=== PATIENT | female | born 1985 | race Caucasian/White ===

== ENCOUNTER 2025-07-24 05:40 | Day surgery (SDC) | payer BC, SELFPAY ==
--- NOTE | 2025-07-10 15:44 | ESHP_ITS ---
RE: D[facility]ALL : 1985 DATE OF ADMISSION: 07/24/2025 HISTORY OF PRESENT ILLNESS: This is a 40-year-old 2, para 0-0-2-0 with abnormal uterine bleeding and endocervical polyp with submucous myoma, who presents for removal of the above lesions and endometrial ablation. ALLERGIES: NO KNOWN DRUG ALLERGIES. MEDICATIONS: None. PAST MEDICAL HISTORY: Denies. SOCIAL HISTORY: She denies any alcohol, drug use or smoking. FAMILY HISTORY: Hypertension. PAST SURGICAL HISTORY: Appendectomy. REVIEW OF SYSTEMS: She denies any chest pain, palpitations, cough, fever, shortness of breath or lower extremity pain. PHYSICAL EXAMINATION: VITAL SIGNS: Blood pressure is 135/80, heart rate 88, respirations 18, temperature 98.6. HEENT: Oropharynx and sclerae are clear. LUNGS: Clear to auscultation bilaterally. HEART: Regular rate and rhythm. ABDOMEN: Nontender. EXTREMITIES: Nontender. SKIN: No gross rashes or lesions. NEUROLOGIC: No focal deficits. ASSESSMENT: Abnormal uterine bleeding, endocervical polyp, submucous myoma. PLAN: Hysteroscopy, MyoSure removal of endometrial polyp and endocervical polyp and submucous myoma, fractional dilatation and curettage, and NovaSure endometrial ablation. Informed consent was obtained. The patient was made aware of the risks, complications, alternatives, and benefits of the proposed procedure and she agrees. She is aware of the risk of injury to bowel and bladder, adjacent organs, pulmonary embolism, deep vein thrombosis, pelvic infection, reoperation to repair injury to internal organs, anesthesia complications, the possibility that a laparotomy needs to be performed to repair organs or controlled bleeding, and the possibility that the procedure is not able to be completed due to severe adhesions or technical difficulties. DT: 12:40:50 TT: 14:57:00 Ref: [id number] - TID: [id number] [facility]
[2025-07-23 07:01] VITALS: BMI 25.9
[2025-07-23 14:16] LABS: Basophils # (Auto) 0.1 Thou/mm3 (0.0-0.2); Basophils % (Auto) 1 % (0-2.5); Eosinophils # (Auto) 0.3 Thou/mm3 (0.0-0.5); Eosinophils % (Auto) 3 % (0-10); Hematocrit 35.6 % (36.0-46.0); Hemoglobin 11.8 g/dL (12.0-16.0); Immature Granulocytes Auto 0.05 Thou/mm3 (0.00-0.00); Lymphocytes # (Auto) 2.9 Thou/mm3 (1.0-4.8); Lymphocytes % (Auto) 29 % (10-50); Mean Corpuscular HGB Conc 33.1 g/dl (31.0-37.0); Mean Corpuscular Hemoglobin 29.9 pg (25.0-35.0); Mean Corpuscular Volume 90 fL (80-100); Monocytes # (Auto) 1.0 Thou/mm3 (0.0-0.8); Monocytes % (Auto) 10 % (0-12); Neutrophils # (Auto) 5.6 Thou/mm3 (1.8-7.7); Neutrophils % (Auto) 57 % (37-80); Nucleated Red Blood Cell # 0.00 Thou/mm3 (0.00-0.00); Nucleated Red Blood Cell % 0 /100 WBC (0); Platelet Count 285 Thou/mm3 (140-440); RDW Standard Deviation 41.9 fL (36.4-46.3); Red Blood Count 3.94 Miln/mm3 (4.00-5.20); White Blood Count 9.8 Thou/mm3 (3.6-11.0)
[2025-07-23 14:25] LABS: INR 1.0 (0.9-1.3); Partial Thromboplastin Time 26.8 Seconds (22.0-36.0); Prothrombin Time 11.0 Seconds (9.0-12.2)
[2025-07-23 14:29] LABS: Alanine Aminotransferase 15 U/L (10-49); Albumin, Serum 4.6 gm/dL (3.5-5.0); Albumin/Globulin Ratio 2.1 (1.2-2.2); Alkaline Phosphatase 68 U/L (46-116); Anion Gap 9 (7-16); Aspartate Amino Transferase 19 U/L (0-34); BUN/Creatinine Ratio 17 Ratio (12-20); Beta HCG,Quantitative < 1 mIU/mL (<5.0); Bilirubin,Total 1.0 mg/dL (0.3-1.2); Blood Urea Nitrogen 12 mg/dL (9-23); Calcium 10.0 mg/dL (8.3-10.6); Calcium (Corrected) 10.0 mg/dL (8.5-10.1); Carbon Dioxide 26.3 mMol/L (20.0-31.0); Chloride 105 mMol/L (98-107); Creatinine (Component) 0.7 mg/dL (0.6-1.3); Estimated Creatinine Clearance 101.6 mL/min (>60); Globulin 2.2 gm/dL (2.3-3.5); Glucose 87 mg/dL (74-106); Osmolality,Calculated 278 (275-295); Potassium 4.0 mMol/L (3.4-5.1); Sodium 140 mMol/L (136-145); Total Protein 6.8 gm/dL (5.7-8.2); eGFR > 60 See Note
[2025-07-24] VITALS (7 sets, daily range): BP systolic 120–138; BP diastolic 70–93; PULSE 69–108; RESP 12–19; TEMP 36.5–36.9; O2SAT 100; BMI 25.8
[2025-07-24] MEDS: RINGERS LACTATED 1000 ML 1,000 ML 30 ML IV (06:55)
--- NOTE | 2025-07-24 07:27 | SUR.PREOP ---
Patient expressed gratitude for prayer before their procedure.
--- NOTE | 2025-07-24 08:05 | SUR.PHASEI ---
0805 Patient arrived to recovery resting comfortably in [facility], on oxygen 3L via oxy mask, breathing unlabored, vital signs stable, denies pain, dressing intact to vaginal area; peripad, no bleeding noted, report received from Eva LOWE and Porter MARISCAL
[2025-07-24] MEDS: fentaNYL CIT INJ 50 mCg/ML AMP 2ML IVP (08:23)
--- NOTE | 2025-07-24 09:01 | SUR.PHASEII ---
0901 Patient meets discharge criteria from recovery, awake and alert, breathing unlabored, vital signs stable, denies pain, dressing intact; no bleeding noted, ate a jello and drinking apple juice, denies nausea, patient assisted with dressing into her clothing by her mother, discharge instructions given to patient and patients mother, mother signed discharge instructions, patient given all her belongings prior to discharge, transported via wheelchair and left in a private vehicle.
--- NOTE | 2025-07-26 07:53 | ESOP_ITS ---
RE: [facility] : 1985 DATE OF OPERATION: 07/24/2025 PREOPERATIVE DIAGNOSES: Abnormal uterine bleeding, submucous myoma. POSTOPERATIVE DIAGNOSES: Abnormal uterine bleeding, endometrial polyp. PROCEDURES: Hysteroscopy, MyoSure removal of endometrial polyp, fractional dilatation and curettage, NovaSure endometrial ablation. SURGEON: Scotty Cruz D.O. ANIMATOR: None. ANESTHESIA: General. ANESTHESIOLOGIST: Porter Nunez CRNA. ESTIMATED BLOOD LOSS: 5 mL. COMPLICATIONS: None. COUNTS: Correct. PATHOLOGY: 1. Endometrial polyp. 2. Endocervical curettings. 3. Endometrial curettings. FINDINGS: Uterus sounds to 8.0 cm. Cervical length is 4.0 cm. Uterine cavity length is 4.0 cm. Uterine cavity width is 3.5 cm. Power setting is 77 [place]. Duration of ablation was 2 minutes. A 1.0 x 0.5 endometrial polyp on the anterior mid aspect of the uterine cavity. DESCRIPTION OF PROCEDURE: After appropriate informed consent was obtained and the patient was made aware of the risks, complications, alternatives and benefits of the proposed procedure, she was taken to the operating room where she underwent induction of general anesthesia. She was placed in the dorsal lithotomy position. She was prepped and draped in the usual sterile fashion. A speculum was placed in the vagina. A single-tooth tenaculum was used to grasp the anterior lip of the cervix. The cervix was dilated and the uterus measured to 8.0 cm, anteverted. The cervical length was 4.0 cm. The uterine cavity length was 4.0 cm. The uterine cavity width was 3.5 cm. The hysteroscope was inserted into the endocervix and the uterine cavity and using normal saline as the distending media, the above findings were noted. Using the MyoSure Reach device, the polypectomy was performed and specimen sent to pathology. The endocervix was curetted and specimen sent to pathology. The uterine cavity was curetted and specimen sent to pathology. The NovaSure catheter was plugged into the controller and went through its purge cycle. The settings were entered into the controller and the carbon dioxide cavity integrity assessment test was performed after the catheter was appropriately seated in the uterine cavity and then the ablation was performed over 2 minutes and then the controller shut off. The array was retracted into the catheter sheath and removed from the uterine cavity. It was redeployed and found to be complete and intact. There was no bleeding at the end of the procedure. The patient was reversed from general anesthesia in the supine position and transferred to the recovery room in stable condition. She tolerated the procedure well. Counts were correct. I discussed with the patient's family the nature of her condition, the intraoperative findings, expectation for recovery. All questions answered. DT: 08:14:24 TT: 09:01:00 Ref: [id number] - TID: [id number]
== END 2025-07-24 09:01 | disposition home or self-care (01) ==
PROVIDERS: PCP Family Medicine; Referring Provider Specialist; Visit Provider Specialist
PROC: 0U5B8ZZ Destruction of Endometrium, Via Natural or Artificial Opening Endoscopic (ICD-10-PCS; CPT 58563; principal; 2025-07-24 07:30)
DX: D25.0 Submucous leiomyoma of uterus (principal); N84.0 Polyp of corpus uteri
CPT/HCPCS: 58563; 36415; 80053; 84702; 85025; 85610; 85730; 86850; 86900; 86901; A4217; A4649; J0131; J0690; J1100; J1885; J2405; J2704; J3010; J7120